=== PATIENT | female | born 1970 | race Caucasian/White ===

== ENCOUNTER 2023-06-05 08:19 | Day surgery (SDC) | payer OTHER ==
[2023-06-05] VITALS (13 sets, daily range): BP systolic 117–144; BP diastolic 67–99; PULSE 79–100; TEMP 92–98.6
[~2023-06-05] VITALS: Ht 172.7 cm; Wt 71.2 kg
[~2023-06-05 08:19] MED LIST: Acetaminophen 500 MG TAB PO SCH; Celecoxib 200 MG CAP PO SCH; Gabapentin 100 MG CAP PO SCH; LR 1,000 ML IV SCH
[2023-06-05] MEDS ORDERED: VALTREX 50500 MG/TAB PO (08:56)
[2023-06-05] MEDS ORDERED: CRESTOR5 MG PO (08:57)
[2023-06-05] MEDS ORDERED: Lidocaine PF 2% (20 MG/ML) 5 ML VIAL ONE ×2 (09:29→09:47)
[2023-06-05] MEDS ORDERED: fentaNYL 50 MCG/ML 2 ML VIAL ONE (09:29)
[2023-06-05] MEDS ORDERED: Ondansetron 4 MG/2 ML VIAL ONE (09:29)
[2023-06-05] MEDS ORDERED: dexAMETHasone 10 MG/ML VIAL ONE (09:29)
[2023-06-05] MEDS ORDERED: Midazolam 2 MG/2 ML VIAL ONE (09:29)
[2023-06-05] MEDS ORDERED: Rocuronium 50 MG/5 ML Multi-Dose VIAL ONE (09:29)
[2023-06-05] MEDS ORDERED: NS 10 ML IV ONE (09:29)
[2023-06-05] MEDS ORDERED: Scopolamine 1 MG Delivered 3-Day PATCH TD SCH (09:45)
[2023-06-05] MEDS ORDERED: NS 100 ML IV ONE (09:47)
[2023-06-05] MEDS ORDERED: Ketorolac 15 MG/ML VIAL IV SCH ×2 (10:30→13:45)
[2023-06-05] MEDS ORDERED: LR 1,000 ML IV SCH (10:30)
[2023-06-05] MEDS ORDERED: oxyCODONE 5 MG TAB PO PRN ×2 (10:30)
[2023-06-05] MEDS ORDERED: Ondansetron 4 MG/2 ML VIAL IV PRN ×2 (10:30→11:00)
[2023-06-05] MEDS ORDERED: Naloxone 0.4 MG/ML VIAL IV PRN (10:30)
[2023-06-05] MEDS ORDERED: Morphine 4 MG/ML VIAL IV PRN (10:30)
[2023-06-05] MEDS ORDERED: fentaNYL 50 MCG/ML 1 ML SYRINGE/VIAL [PACU/SDC ONLY] IV PRN (11:00)
[2023-06-05] MEDS ORDERED: hydrALAZINE 20 MG/ML 1 ML VIAL IV PRN (11:00)
[2023-06-05] MEDS ORDERED: HYDROmorphone 1 MG/1 ML SYRINGE [PACU/SDC ONLY] IV PRN (11:00)
[2023-06-05] MEDS ORDERED: droPERidol 2.5 MG/ML 2 ML VIAL IV PRN (11:00)
[2023-06-05] MEDS ORDERED: Phenylephrine 10 MG/ML VIAL ONE (11:00)
[2023-06-05] MEDS ORDERED: Morphine 2 MG/1 ML VIAL [PACU/SDC ONLY] IV PRN (11:00)
[2023-06-05] MEDS ORDERED: Topical Skin Adhesive 1 EACH (1 ML) TOP ONE (12:35)
[2023-06-05] MEDS ORDERED: ULTRAM 50MG TAB50 MG PO (13:37)
[2023-06-05] MEDS ORDERED: PYRIDIUM 100MG100 MG PO (13:37)
[2023-06-05] MEDS ORDERED: Gabapentin 100 MG CAP PO ONE (14:25)
--- NOTE | 2023-06-05 14:40 | NUR ---
PT UP TO FLOOR AT THIS TIME. PT A/O X4, INCISIONS TO SKIN GLUE WITH EDGES WELL APPROX. RITO DRAIN TO COMPRESSION AND OLSON TO DEPENDENT DRAINAGE. AT BEDSIDE, TOELRATING CLEAR DEIT WELL, RATING PAIN 5/10 IN INCISION SITE AT THE TOP OF HER ABDOMEN, SCHEDULED MEDICATION PROVIDED. VITALS STABLE ON RA. WILL CONTINUE TO MONITOR.
[2023-06-05] MEDS ORDERED: Acetaminophen 500 MG TAB PO SCH (15:00)
[2023-06-05] MEDS ORDERED: Rosuvastatin 5 MG **** subs to Atorvastatin 10 MG PO SCH (21:00)
[2023-06-05] MEDS ORDERED: Atorvastatin 10 MG TAB PO SCH (21:00)
--- NOTE | 2023-06-05 21:15 | NUR ---
Patient assessed at this time, see shift assessment, reports stabbing pain she moves, ambulated the hallway assisted by this nurse, tolerating fluids and food fine, denies nausea or vomiting, IV infusing well on right antecubital, 4 lap sites skin glued, no drainage noted, with RITO drain to bulb suction dressing CDI, with hernandez to dependent drainage, called RT for incentive spirometer, SCD's on, denies further needs, call light and personal items within reach, will continue to monitor.
[2023-06-06] VITALS (7 sets, daily range): BP systolic 122–136; BP diastolic 79–88; PULSE 75–86; TEMP 98.1
--- NOTE | 2023-06-06 03:51 | NUR ---
Patient complained of pain again, PS of 6/10, medicated with scheduled tylenol and oxycodone, INT at this time, denies further needs, will continue to monitor.
--- NOTE | 2023-06-06 06:38 | NUR ---
Removed hernandez at this time as per order, tolerated it well, pericare done.
--- NOTE | 2023-06-06 08:00 | NUR ---
PATIENT IS A&O. VSS. PATIENT C/O GAS PAIN & CRAMPING ASSOCIATED WITH RITO DRAIN. GAVE PRN OXYCODONE WITH AM MEDS. APPLIED WARM BLANKET TO ABD. NOTED SMALL AMOUNTS OF SEROSANG DRAINAGE IN RITO. ABD LAP SITES X4 ARE CD&I. ABD IS SOFT, ROUND AND WITH POSITIVE BOWL SOUNDS. NO C/O N/V. RIGHT AC IV TO INT. BREAKFAST TRAY AT BEDSIDE. HEAD TO TOE ASSESSMENT WNL. NO OTHER NEEDS AT THIS TIME. CALL LIGHT IN REACH.
[2023-06-06] MEDS ORDERED: valACYclovir 500 MG TAB PO SCH (09:00)
[2023-06-06] MEDS ORDERED: Docusate Sodium 100 MG CAP PO SCH (09:00)
--- NOTE | 2023-06-06 10:50 | NUR ---
PATIENT STILL C/O SEVERE INTERMITTENT ABD CRAMPS THAT BRING TEARS TO HER EYES AT TIME. GAVE SCHEDULED IV TORADOL. PATIENT REPORTS GAS PAINS IN RIGHT RIB/FLANK AND SHARP STABBING PAINS WHEN RITO DRAIN IS COMPRESSED. NOTED SMALL AMOUNTS OF SEROSANG DRAINAGE. ASSISTED PATIENT TO BEDSIDE CHAIR, SHE DID REPORT A FEW AIR BUBBLES WITH GETTING UP. AT BEDSIDE. CALL LIGHT IN REACH.
--- NOTE | 2023-06-06 13:05 | NUR ---
Belt Machine Operator met with patient to complete intake. Patient and [place] ([phone]) live in [facility]. Patient sees Dr. Lupillo Prado as her PCP and uses [facility] in [facility]. She is using [facility] for discharge medications. Patient denies using any DME. 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 Patient denies any discharge needs. Discharge plan: Home
--- NOTE | 2023-06-06 13:15 | NUR ---
PATIENT FINISHED WITH LUNCH AND NOW WALKING THE HALLS WITH . PATIENT WILL CALL WHEN SHE IS READY FOR NURSING TO COME TAKE OUT HER RITO DRAIN.
--- NOTE | 2023-06-06 13:45 | NUR ---
DC'D RITO DRAIN PER ORDERS. SUTURE REMOVED AND DRAIN REMOVED WITH ANY ISSUES. PATIENT HAD DISCOMFORT WITH REMOVAL BUT FELT RELIEF AFTER, NO SPASMS SINCE REMOVED SO FAR. PATIENT RESTING IN BED.
--- NOTE | 2023-06-06 15:15 | NUR ---
PATIENT DISCHARGING HOME. GAVE DISCHARGE INSTRUCTIONS AND ANSWERED QUESTIONS/CONCERNS. DC'D RIGHT AC IV AND COVERED SITE WITH GAUZE & COBAN. PATIENT REPORTS SHE FEELS SO MUCH BETTER SINCE RITO DRAIN WAS PULLED, NO MORE SPAMS REPORTED. PATIENT GETTING DRESSED. WILL COME OUT TO DESK WHEN THEY ARE READY TO LEAVE.
== END 2023-06-06 15:30 | disposition home or self-care (01) ==
LOC: SDCO 08:19 → SURG 14:40 → SDCO 06-06 15:30
DX: N13.5 Crossing vessel and stricture of ureter without hydronephrosis (principal)
CPT/HCPCS: OP; A4314; A9284; C1769; C2617; J0690; J1100; J1170; J1885; J2250; J2270; J2371; J2405; J2704; J2795; J3010; J7120